=== PATIENT | female | born 1990 | race Caucasian/White ===

== ENCOUNTER → 2016-09-16 | Outpatient (CLI) | payer BC ==
[~2016-09-16] MED LIST: ACHYD1T PO; CETI1TAB61 PO
--- NOTE | 2016-09-16 20:16 | Diagnostic Imaging Report ---
EXAMINATION: Right breast ultrasound. INDICATION: Palpable lump. FINDINGS: The palpable the lump corresponds with a lobulated oval hypoechoic circumscribed the lesion measuring 1.4 x 1.1 x 0.7 cm with increased through transmission and fairly homogeneous internal echogenicity. There is mild internal vascularity seen. This is located at the 9:00 zone, 5 cm from the nipple. The retroareolar region and four quadrants were scanned with no other lesion identified. 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 This lesion is clearly identified on ultrasound and due to the young age of the patient, a mammogram was not performed at this time. Ultrasound followup in six months is recommended to ensure stability. ACR BI-RADS Category 3: Probably benign findings. Result letter will be mailed to the patient. Note: At least 10% of breast cancer is not imaged by mammography. Dictated by: Dictated on workstation # [id number]
== END ==
LOC: RAD 07:38
PROVIDERS: ATTEND Obstetrics & Gynecology
DX: D24.1 Benign neoplasm of right breast (principal)
CPT/HCPCS: 76641